=== PATIENT | female | born 1970 | race Caucasian/White ===

== ENCOUNTER 2020-02-04 14:59 | Outpatient (CLI) | payer OTHER, SELFPAY ==
--- NOTE | ~2020-02-04 | MM_ITS ---
EXAMINATION: MM screening [facility] BI w amber HISTORY: Screening mammogram TECHNIQUE: Craniocaudal and mediolateral oblique 3-D tomosynthesis images were obtained and synthetic 2-D images were generated. CAD analysis was submitted and interpreted. COMPARISON: 01/09/2019, 12/03/2017, 11/08/2016 BREAST PARENCHYMAL COMPOSITION: The breasts are heterogeneously dense, which may obscure small masses . FINDINGS: There is no evidence of suspicious mass, calcification, or architectural distortion to sugg est malignancy in either breast. There has been no suspicious interval change. IMPRESSION: 1. No mammographic evidence of malignancy. 2. Recommend routine screening mammography in one year. BI-RADS Category 1: Negative Reviewed, dictated and finalized at location A.
== END 2020-02-04 15:00 | disposition home or self-care (01) ==
LOC: ANHIMG 15:07
PROVIDERS: PCP Family Medicine; Visit Provider Obstetrics & Gynecology
DX: Z12.31 Encounter for screening mammogram for malignant neoplasm of breast (principal)
CPT/HCPCS: 77063; 77067

== ENCOUNTER 2021-05-02 09:38 | Outpatient (CLI) | payer OTHER, SELFPAY ==
--- NOTE | ~2021-05-02 | MM_ITS ---
EXAMINATION: MM screening [facility] BI w amber HISTORY: Screening mammogram TECHNIQUE: Craniocaudal and mediolateral oblique 3-D tomosynthesis images were obtained and synthetic 2-D images were generated. CAD analysis was submitted and interpreted. COMPARISON: 02/04/2020, 01/09/2019, 12/13/2017 bilateral digital screening mammogram examinations BREAST PARENCHYMAL COMPOSITION: The breasts are heterogeneously dense, which may obscure small masses . FINDINGS: Bilateral punctate benign-appearing microcalcifications are again present. There is no evid ence of suspicious mass, calcification, or architectural distortion to suggest malignancy in either b reast. There has been no suspicious interval change. IMPRESSION: 1. No mammographic evidence of malignancy. 2. Recommend routine screening mammography in one year. BI-RADS Category 2: Benign finding(s). Reviewed, dictated and finalized at location A.
== END 2021-05-02 09:39 | disposition home or self-care (01) ==
LOC: ANHIMG 09:42
PROVIDERS: PCP Family Medicine; Visit Provider Obstetrics & Gynecology
DX: Z12.31 Encounter for screening mammogram for malignant neoplasm of breast (principal)
CPT/HCPCS: 77063; 77067

== ENCOUNTER 2022-06-13 09:19 | Outpatient (CLI) | payer OTHER, SELFPAY ==
--- NOTE | ~2022-06-13 | MM_ITS ---
EXAMINATION: MM screening [facility] BI w amber HISTORY: Screening TECHNIQUE: Craniocaudal and mediolateral oblique 3-D tomosynthesis images were obtained and synthetic 2-D images were generated. CAD analysis was submitted and interpreted. COMPARISON: Comparison to multiple prior studies sequentially, with oldest reviewed study dated 08/26. BREAST PARENCHYMAL COMPOSITION: The breasts are heterogenously dense, which may obscure small masses FINDINGS: There is no evidence of suspicious mass, calcification, or architectural distortion to sugg est malignancy in either breast. There has been no suspicious interval change. IMPRESSION: 1. No mammographic evidence of malignancy. 2. Recommend routine screening mammography in one year. BI-RADS Category 1: Negative Reviewed, dictated and finalized at location L.
== END 2022-06-13 09:20 | disposition home or self-care (01) ==
LOC: ANHIMG 09:21
PROVIDERS: PCP Family Medicine; Visit Provider Obstetrics & Gynecology
DX: Z12.31 Encounter for screening mammogram for malignant neoplasm of breast (principal)
CPT/HCPCS: 77063; 77067

== ENCOUNTER 2023-01-07 09:14 | Day surgery (SDC) | payer OTHER, SELFPAY ==
[2022-11-05 11:27] VITALS: BMI 26.6
[2022-12-27 13:57] VITALS: BMI 26.4
[2023-01-07 10:20] VITALS: BP 105/75; PULSE 71; RESP 20; TEMP 36.9; O2SAT 100
[2023-01-07] MEDS: LACTATED RINGERS 1,000 ML 150 ML IV CONT (10:55)
--- NOTE | 2023-01-07 11:19 | WPDANESEPPF ---
Anes - Initial Pre Proc Eval Procedure: Operation Date: 01/07/23 11:30 Proposed Procedures p Screening Colonoscopy - Carloz Hess MD Date/Time: 01/07/23 11:19 Surgeon: Carloz Hess MD Pre Op Diagnosis: Neoplasm Screening Patient Data Age: 52 Gender: F Height: 1.73 m Weight: 78.7 kg Last Vital Signs Temp 36.9 C 01/07/23 10:20 Pulse 71 01/07/23 10:20 Resp 20 01/07/23 10:20 BP 105/75 01/07/23 10:20 Pulse Ox 100 01/07/23 10:20 O2 Del Method Room Air 01/07/23 10:20 Allergies Allergy/AdvReac Type Severity Reaction Status Date / Time No Known Allergies Allergy Mild Verified 01/07/23 10:47 Home Medications Medication Instructions Recorded Confirmed Type erenumab-aooe 70 mg/mL See Rx Instructions .Route 04/27/22 01/07/23 Rx subcutaneous auto-injector .COMPLEX #1 mL (Aimovig Autoinjector) Patient hx anesthesia problems: none Family hx anesthesia problems: none Results Review: All pre-operative results and documents have been reviewed as part of the pre-operative evaluation. [facility] Family History Family History Grandparent Diabetes mellitus Hypertension Sibling Family history of migraine headaches Social History Social History Smoking status: Never smoker Alcohol intake: current Substance use type: does not use Living arrangements: with family Spiritual care concerns: No Anes - Eval Final PreProcedure Day of Procedure 01/07/23 11:19 Patient weight: overweight Heart: regular rate and rhythm Lungs: clear to auscultation and normal air movement Airway: Mallampati scale class II Neurological: alert and oriented Last oral intake: >/= 8 hours ASA classification: II Emergent: no Anesthetic plan: proceed Anesthesia type and monitoring: general GIVS Results Review: All pre-operative results and documents have been reviewed as part of the pre-operative evaluation. Informed Consent: The patient's anesthetic plan and its attendant risks and benefits were discussed with the patient/family/POA. Questions were solicited and answers provided to the satisfaction of the patient/family/POA.
--- NOTE | 2023-01-07 12:26 | PM.HPGS ---
History of Present Illness History of Present Illness Consent: Risks, benefits, and alternatives have been discussed and questions answered. Patient agrees to proceed with procedure. Chief complaint: Neoplasm Screening Narrative: Jaida Urban is a 52 year old female here for first screening colonoscopy Review of Systems Constitutional: Constitutional: Denies headache(s) and Denies weakness Eyes: Eyes: Denies blurry vision ENT: Reports Normal hearing present, Denies headache(s) and Denies neck pain Cardiovascular: Cardiovascular: Denies chest pain and Denies dyspnea Respiratory: Respiratory: Denies dyspnea Gastrointestinal: Gastrointestinal: Reports no additional gastrointestinal complaints Genitourinary: Genitourinary: Denies dysuria Musculoskeletal: Musculoskeletal: Denies neck pain Integumentary/Breasts: Skin/Breast: Denies dry skin Neurologic: Reports Normal hearing present, Denies headache(s) and Denies weakness Psychiatric: Psychiatric: Denies anxiety Endocrine: Endocrine: Denies change in body appearance Hematologic/Lymphatic: Hematologic/Lymphatic: Denies easy bleeding Allergic/Immunologic: Allergic/Immunologic: Denies urticaria [facility] Past Medical History Medical History (Updated 01/07/23 @ 12:26 by Carloz Hess MD) Colon cancer screening Family History Family History Grandparent Diabetes mellitus Hypertension Sibling Family history of migraine headaches Social History Social History Smoking status: Never smoker Alcohol intake: current Substance use type: does not use Living arrangements: with family Spiritual care concerns: No Meds Home Medications and Allergies Home Medications Medication Instructions Recorded Confirmed Type erenumab-aooe 70 mg/mL See Rx Instructions .Route 04/27/22 01/07/23 Rx subcutaneous auto-injector .COMPLEX #1 mL (Aimovig Autoinjector) Allergies Allergy/AdvReac Type Severity Reaction Status Date / Time No Known Allergies Allergy Mild Verified 01/07/23 10:47 Vital Signs Vital Signs - 24 hr 01/07/23 10:20 Temperature 98.5 F Pulse Rate 71 Respiratory Rate 20 Blood Pressure 105/75 Pulse Oximetry 100 Oxygen Delivery Room Air Exam Const: General: comfortable and no acute distress HENMT: Face/Nose/Sinus: Normal nares present Eyes: General: appearance normal, both eyes and all related structures Neck: Neck: no JVD Resp: Auscultation: clear to auscultation bilaterally Cardio: Rate: regular rate Rhythm: regular rhythm GI: Inspection: non-distended GI Palp: Yes Soft to palpation Skin: General skin exam: normal color Neuro: General: gait normal Speech: normal speech Extrem: General: normal to inspection Psych: Mental Status: mental status grossly normal Assessment and Plan Assessment and plan (1) Colon cancer screening: Code(s): Z12.11 - Encounter for screening for malignant neoplasm of colon Status: Acute Assessment and Plan: colonoscopy
[2023-01-07 12:54] VITALS: BP 99/68; PULSE 83; RESP 16; O2SAT 99
[2023-01-07 13:04] VITALS: BP 99/68; PULSE 83; RESP 16; O2SAT 99
[2023-01-07 13:14] VITALS: BP 102/69; PULSE 68; RESP 18; O2SAT 100
--- NOTE | 2023-01-07 13:37 | WPDANESPN ---
Anes - Prog Note Post-Op Date/Time: 01/07/23 13:37 Cardiovascular status: normal Respiratory status: normal Airway patency: baseline Mental status: baseline Post-Op hydration status: normal Vital Signs: Last Vital Signs Temp 36.9 C 01/07/23 10:20 Pulse 68 01/07/23 13:14 Resp 18 01/07/23 13:14 BP 102/69 01/07/23 13:14 Pulse Ox 100 01/07/23 13:14 O2 Del Method Room Air 01/07/23 13:14 Pain Score (VAS): 0 I/O: Intake & Output 01/06/23 01/07/23 01/07/23 23:59 07:59 15:59 Intake Total 450 Balance 450 Post-procedural complaints: none Patient Feedback: Patient satisfied with anesthetic care.
== END 2023-01-07 13:37 | disposition home or self-care (01) ==
PROVIDERS: PCP Emergency Medicine; Visit Provider Internal Medicine Gastroenterology
PROC: 0DJD8ZZ Inspection of Lower Intestinal Tract, Via Natural or Artificial Opening Endoscopic (ICD-10-PCS; CPT 45378; principal; 2023-01-07 11:30)
DX: Z12.11 Encounter for screening for malignant neoplasm of colon (principal)
CPT/HCPCS: 45378

== ENCOUNTER 2023-09-12 08:10 | Outpatient (CLI) | payer OTHER, SELFPAY ==
--- NOTE | ~2023-09-12 | MM_ITS ---
EXAMINATION: MM screening [facility] BI w amber HISTORY: Screening TECHNIQUE: Craniocaudal and mediolateral oblique 3-D tomosynthesis images were obtained and synthetic 2-D images were generated. CAD analysis was submitted and interpreted. COMPARISON: Comparison to multiple prior studies sequentially, with oldest reviewed study dated 10/25. BREAST PARENCHYMAL COMPOSITION: The breasts are heterogeneously dense, which may obscure small masses . FINDINGS: There is no evidence of suspicious mass, calcification, or architectural distortion to sugg est malignancy in either breast. There has been no suspicious interval change. IMPRESSION: 1. No mammographic evidence of malignancy. 2. Recommend routine screening mammography in one year. BI-RADS Category 1: Negative Reviewed, dictated and finalized at location A.
== END 2023-09-12 08:11 | disposition home or self-care (01) ==
PROVIDERS: PCP Emergency Medicine; Visit Provider Obstetrics & Gynecology
DX: Z12.31 Encounter for screening mammogram for malignant neoplasm of breast (principal)
CPT/HCPCS: 77063; 77067

== ENCOUNTER 2024-10-19 15:19 | Outpatient (CLI) | payer OTHER, SELFPAY ==
--- NOTE | ~2024-10-19 | MM_ITS ---
EXAMINATION: MM screening [facility] BI w amber HISTORY: Screening TECHNIQUE: Craniocaudal and mediolateral oblique 3-D tomosynthesis images were obtained and synthetic 2-D images were generated. CAD analysis was submitted and interpreted. COMPARISON: Comparison to multiple prior studies sequentially, with oldest reviewed study dated 07/2018. BREAST PARENCHYMAL COMPOSITION: Not dense: There are scattered areas of fibroglandular density. FINDINGS: There is no evidence of suspicious mass, calcification, or architectural distortion to sugg est malignancy in either breast. There has been no suspicious interval change. IMPRESSION: 1. No mammographic evidence of malignancy. 2. Recommend routine screening mammography in one year. BI-RADS Category 1: Negative Reviewed, dictated and finalized at location B. [employer]CE [employer]
== END 2024-10-19 15:20 | disposition home or self-care (01) ==
LOC: ANHIMG 15:21
PROVIDERS: PCP Emergency Medicine; Visit Provider Obstetrics & Gynecology
DX: Z12.31 Encounter for screening mammogram for malignant neoplasm of breast (principal)
CPT/HCPCS: 77063; 77067

== ENCOUNTER 2025-02-11 09:00 | Outpatient (RCR) | payer OTHER, SELFPAY ==
--- NOTE | 2025-01-19 14:24 | OPREHPOC ---
Outpatient Therapy Plan of Care This is a Multidisciplinary Plan of Care that may contain components documented by all disciplines (PT, OT, and ST.) PT Problem 1 PT Problem #1 Knowledge Deficit PT Goal 1 Goal / Goal Update 1. P t to be IND with issued HEP Target Visit 10 PT Problem 2 PT Problem #2 Pain PT Goal 1 Goal / Goal Update 1. Pt to report arm pain no greater than 3/10 in the last week. 2. Pt to report one week without R sided numbness or tingling. Target Visit 10 PT Problem 3 PT Problem #3 Impaired Functional Mobility PT Goal 1 Goal / Goal Update 1. Pt to demonstrate a 20lb lift and carry from ground level without an increase in symptoms. Target Visit 10
--- NOTE | 2025-01-19 14:24 | PTOPEVAL1 ---
Assessment and note entered by Blanca Hardwick, PT, DPT Evaluation Information Assessment Status Evaluation Diagnosis cervical radiculopathy ICD-10 Condition Codes (PT) Radiculopathy, cervical M54.13,Pain in right shoulder M25.511,Pain in left shoulder M25.512 Other ICD-10 Condition Codes ( giovanni hand pain PT) Subjective Information Pt reports numbness and tinging in her R thumb and index fingers, she has not noticed a pattern to the symptoms. She states the numbness has been going on for years. Will get other pains down the side of her upper arm. States her hand tingling and arm pain do not happen at the same time. Reports decreased R shoulder ROM. States her L thenar eminence is always sore as well. Also reports L shoulder tightness when reaching behind her back. Has a desk job. Reported Pain Level Pain Score 0,0: Self Report Assessment PT Clinical Summary Pt presents to therapy today for her initial evaluation with a diagnosis of cervical radiculopathy. She demonstrates decreased active cervical ROM with good mobility passively without pain. She has good shoulder ROM and strength without an increase in pain. She reports various, intermittent radicular symptoms. Pt would benefit from improved cervical and upper thoracic stability. Skilled therapy services are indicated to address the deficits noted above, to limit pain , and to return to PLOF. Plan of Care Interventions Electrical Stimulation,Gait Training,Hot Pack/Cold Pack,Manual Therapy,Mechanical Traction,Neuro Re- education,Patient/Caregiver Education,Therapeutic Activities,Therapeutic Exercise PT Services Indicated Yes Treatment Frequency and 2x/wk for 10 visits Duration These treatments will address the objective and functional deficits as defined above. The patient will be advanced safely and appropriately in order for the patient to progress towards his/her prior level of function. Additional exercises will be introduced and as well as a comprehensive home exercise program upon discharge, if needed, ?to ensure carryover of functional gains achieved in the clinic. This treatment plan has been reviewed and agreement upon by the patient.
--- NOTE | 2025-02-12 08:17 | PTOPDC ---
Assessment and note entered by Juan Pablo Morrissey, PT Evaluation Information Assessment Status Discharge Diagnosis cervical radiculopathy ICD-10 Condition Codes (PT) Radiculopathy, cervical M54.13,Pain in right shoulder M25.511,Pain in left shoulder M25.512 Other ICD-10 Condition Codes ( giovanni hand pain PT) Subjective Information Patient reports that she has not seen much change from her initial therapy visit. Feels that pain is still sporadic at times and does not follow a specific pattern. 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 Reported Pain Level Pain Score 4,0: Self Report Assessment PT Clinical Summary Patient has seen some minor progress in cervical ROM at this time. We had a lengthy discussion about the importance of jail postural strengthening and its possible effects on cervical radiculopathy. Discussed the potential of looking into imaging should we not see any jail resolution. Plan of Care PT Services Indicated Yes
== END 2025-04-19 23:59 | disposition home or self-care (01) ==
LOC: ANHPT 09:00
PROVIDERS: PCP Internal Medicine; Visit Provider Clinical Nurse Specialist
DX: M54.13 Radiculopathy, cervicothoracic region (principal); M25.511 Pain in right shoulder
CPT/HCPCS: 97110; 97140; 97161; 97530

== ENCOUNTER 2025-03-05 10:17 | Outpatient (CLI) | payer OTHER, SELFPAY ==
--- NOTE | ~2025-03-05 | XR_ITS ---
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 Reviewed, dictated and finalized at location A.
== END 2025-03-05 10:18 | disposition home or self-care (01) ==
LOC: GOSHIMG 10:17
PROVIDERS: PCP Nurse Practitioner; Visit Provider Nurse Practitioner
DX: M25.519 Pain in unspecified shoulder (principal)
CPT/HCPCS: 73030

== ENCOUNTER 2025-03-22 14:33 | Outpatient (CLI) | payer OTHER, SELFPAY ==
--- NOTE | ~2025-03-22 | MR_ITS ---
MRI of the left shoulder Technique: Axial proton-density fat-sat images, coronal proton density fat-sat and T2 fat-sat images, and sagittal T1-weighted and T2 fat-sat images were acquired. Clinical History: Pain Findings: There is minimal AC joint degenerative change. Coracoclavicular, coracoacromial, and coraco humeral ligaments are intact. Supraspinatus and infraspinatus tendons are intact, without partial or full-thickness tear. There is minimal tendinosis. Subscapularis tendon intact. Tendon of long head of the biceps is intact. Questionable degenerative superior labral tear. Inferior glenohumeral ligament is intact. No significant effusion or degenerative change of the gleno humeral joint. No fluid distention of the subacromial/subdeltoid bursa. No muscle atrophy or edema. Impression: Questionable degenerative superior labral tear. Mild rotator cuff tendinosis. No rotator cuff tear. Reviewed, dictated and finalized at [facility]. Impression: Questionable degenerative superior labral tear. Mild rotator cuff tendinosis. No rotator cuff tear.
== END 2025-03-22 14:34 | disposition home or self-care (01) ==
PROVIDERS: PCP Nurse Practitioner; Visit Provider Nurse Practitioner
DX: M75.102 Unspecified rotator cuff tear or rupture of left shoulder, not specified as traumatic (principal)
CPT/HCPCS: 73221

== ENCOUNTER 2025-07-13 09:00 | Outpatient (RCR) | payer OTHER, SELFPAY ==
--- NOTE | 2025-06-11 11:48 | OPREHPOC ---
Outpatient Therapy Plan of Care This is a Multidisciplinary Plan of Care that may contain components documented by all disciplines (PT, OT, and ST.) PT Problem 1 PT Problem #1 Knowledge Deficit PT Goal 1 Goal / Goal Update Patient to demonstrate independence with HEP for improved self-reliance of symptom management. Target Visit 4 PT Problem 2 PT Problem #2 Pain PT Goal 1 Goal / Goal Update 1. Patient to decrease subjective reports of pain to <2/10 when attempting to clasp her bra for improved dressing ability. 2. Patient will score </=15% disability on the QuickDash to demonstrate meaningful improvement in patient's quality of life. Target Visit 8 PT Problem 3 PT Problem #3 Impaired Range of Motion PT Goal 1 Goal / Goal Update 1. Pt to demonstrate an increase of L shoulder ER/ IR functional reach to EOP/L1 to improve the ability to perform personal hygiene tasks. 2. Pt to demonstrate an increase of L shoulder flexion AROM to >=150 deg to improve the ability to reach overhead. 2. Pt to demonstrate an increase of L shoulder abduction AROM to >=130 deg to improve the ability to reach overhead. Target Visit 8 PT Problem 4 PT Problem #4 Impaired Strength PT Goal 1 Goal / Goal Update Patient to demonstrate L shoulder strength >=4+/5 for improved functional stability required for ADLs. Target Visit 8
--- NOTE | 2025-06-11 11:48 | PTOPEVAL1 ---
Assessment and note entered by Pat Lainez, PT Evaluation Information Assessment Status Evaluation Diagnosis M75.00 adhesive capsulitis ICD-10 Condition Codes (PT) Pain in left shoulder M25.512 Onset >8mo Subjective Information Pt reports insidious onset of L shoulder pain > 8 months ago. She denies a specific TOY and has previous PT treatment for her neck and shoulder that she felt was unsuccessful. It has progressively been getting worse since she stopped PT and been waiting to see an ortho. MRI on 03/22 was negative for RTC or labral pathology. At her most recent MD appt they are concerned about development of frozen shoulder and want to try PT again and follow up in 2 months. She did receive an injection on 06/03. She is unable to claps her bra, don a jacket, pull for her seatbelt and continues to notices limited ROM compared to her other side. Pt. is R hand dominant. Reported Pain Level Pain Score 0: Self Report Additional Pain Score Comments intermittent sharp pain with movement and her shoulder feels stuck if she stops what she is doing it gets better in < 30sec and she will try to stretch/pull it Assessment PT Clinical Summary Pt is a 55 year old female who presents to physical therapy with a primary complaint of chronic L shoulder pain. Pt demonstrates weakness, pain, decreased mobility, and decreased flexibility that limit their ability to perform ADLs. Pt ROM and strength deficits characterized as a capsular restriction and are consistent with diagnosis of adhesive capsulitis. Pt will benefit from skilled physical therapy to address the above listed deficits and return to PLOF. HEP instructed and written handout provided, EX tolerated well with no adverse effects to note post-session. Pt was educated on importance of adherence to HEP. Pt was also educated on anatomy, prognosis, home modalities, and PT POC. Plan of Care Interventions Electrical Stimulation,Hot Pack/Cold Pack,Manual Therapy,Neuro Re-education,Therapeutic Activities, Therapeutic Exercise,Ultrasound PT Services Indicated Yes Treatment Frequency and 2x/week for 8 visits Duration These treatments will address the objective and functional deficits as defined above. The patient will be advanced safely and appropriately in order for the patient to progress towards his/her prior level of function. Additional exercises will be introduced and as well as a comprehensive home exercise program upon discharge, if needed, ?to ensure carryover of functional gains achieved in the clinic. This treatment plan has been reviewed and agreement upon by the patient.
--- NOTE | 2025-07-13 09:41 | PTOPDC ---
Assessment and note entered by Pat Lainez, PT Evaluation Information Assessment Status Discharge Diagnosis M75.00 adhesive capsulitis ICD-10 Condition Codes (PT) Pain in left shoulder M25.512 Onset >8mo Subjective Information She is able to clap her bra, don a jacket, pull for her seatbelt but it still doesn't feel normal. Her ROM still feels tight like there is hard stop when she gets to a certain point. Overall since starting therapy the pt reports feeling 70% improvement. She still has tightness 4/10 at its worst in the last week when attempting to clasp her bra or put on her seatbelt. She is compliant with her HEP and thinks they are helping stretch the right areas. Reported Pain Level Pain Score 0: Self Report Assessment PT Clinical Summary Patient's condition has improved overall as evidenced by advancements in symptoms, mobility, strength, and overall functional use of the extremity. Pt has met 4 therapy goals and is pleased with progress made towards the remaining goals. She feels comfortable continuing to manage her care at home. Patient to DC from PT this date and continue with updated HEP as instructed. Pt to contact PT or PCP if questions or concerns arise. Plan of Care PT Services Indicated Yes
== END 2025-07-13 13:57 | disposition home or self-care (01) ==
LOC: ANHGOSHPT 09:00
PROVIDERS: PCP Nurse Practitioner; Visit Provider Orthopaedic Surgery
DX: M75.82 Other shoulder lesions, left shoulder (principal); S43.439A Superior glenoid labrum lesion of unspecified shoulder, initial encounter; M75.00 Adhesive capsulitis of unspecified shoulder
CPT/HCPCS: 97110; 97140; 97161; 97530

== ENCOUNTER 2025-10-25 12:49 | Outpatient (CLI) | payer OTHER, SELFPAY ==
--- NOTE | ~2025-10-25 | MM_ITS ---
EXAMINATION: MM screening [facility] BI w amber HISTORY: Screening. TECHNIQUE: Craniocaudal and mediolateral oblique 3-D tomosynthesis images were obtained and synthetic 2-D images were generated. CAD analysis was submitted and interpreted. COMPARISON: 2023, 2022, and 2021 BREAST PARENCHYMAL COMPOSITION: Dense: The breasts are heterogeneously dense FINDINGS: No suspicious masses are seen. There are no suspicious calcifications. No unexplained architectural distortion is seen. There are no skin or nipple abnormalities identified. There is no adenopathy seen on the images submitted. IMPRESSION: No mammographic evidence to suggest malignancy is seen. The patient may return to screening mammography as per ACR guidelines. BI-RADS 1 - Negative. Reviewed, dictated and finalized at location B. CHOOL HEAD TEACHER
--- OUTSIDE RECORDS SUMMARY | 2025-10-25 13:57 | XMS_ITS | Clinical Summary ---
Author Organization [facility] Address [address] [place] [id number] Care Team Providers Care Information Security Engineer Name Role Phone Unavailable Primary Care Provider Unavailabl e Immunizations Immunization Administration Dates Next Due Covid-19, Mrna, Lnp-s, Pf, 30 Mcg/0.3 Ml Dose (Marek rosen) 09/30/2021 Social History Tobacco Use Types Packs/Day Years Used Date Smoking Tobacco: Never Assessed Comments Unknown Sex and Gender Information Value Date Recorded Sex Assigned at Not on file Legal Sex Female 3:48 PM CDT Gender Identity Not on file Sexual Orientation Not on file Plan of Treatment Health Maintenance Due Date Last Done Comments Hepatitis C Virus (HCV) Screening 1970 TdaP Immunization 1970 Hepatitis B Immunization (1 of 3 - 19+ 3-dose series) 01/26/1991 Pap Smear 01/26/1993 Cervical Cancer Screening (CCS) 01/26/2002 HPV/Cotest 01/26/2002 Cologuard 01/26/2017 Colonoscopy 01/26/2017 Colorectal Cancer Screening 01/26/2017 Immunochemical Fecal Occult Blood 01/26/2017 Pneumococcal Immunization (50+ years) (1 of 1 - PCV) 01/26/2022 Zoster Immunization (1 of 2) 01/26/2022 Influenza Immunization (#1) 07/26/202509/25, 11/30/2019, 09/29/2018, Additional history exists SARS-COV-2 Immunization (2024- season) 2025 09/30/2021, 01/29/2021, 01/08/2021 Respiratory Syncytial Virus (RSV) Immunization (Adult) (1 - 1-dose 75+ series) 01/26/2047 DTaP/Tdap/Td Immunization Discontinued 10/06/2020 Human Papillomavirus (HPV) Immunization Aged Out No longer eligible based on patient's age to complete this topic Meningococcal Immunization (ACWY) Aged Out No longer eligible based on patient's age to complete this topic Rotavirus Immunization Aged Out No lo nger eligible based on patient's age to complete this topic
== END 2025-10-25 12:50 | disposition home or self-care (01) ==
LOC: CHSIMG 12:51
PROVIDERS: PCP Internal Medicine; Visit Provider Obstetrics & Gynecology
DX: Z12.31 Encounter for screening mammogram for malignant neoplasm of breast (principal)
CPT/HCPCS: 77063; 77067